=== PATIENT | female | born 1945 | race Caucasian/White ===

== ENCOUNTER 2017-12-25 08:12 | Inpatient (IN) | payer MEDICARE, OTHER ==
[~2017-12-25] VITALS: Ht 172.7 cm; Wt 57.0 kg
[~2017-12-25 08:12] MED LIST: ACET-812 PO; ACET500C26 PO; ASPI-1265 PO; ATRNS; CALC-212 PO; CHOL10002 PO; COGNITEX PO; CURCUMIN PO; DONE10TA44 PO; FISH12002 PO; GABA300C PO; IBUP-2417 PO; MAGN200T PO; MELA5TAB12 PO; MEMA10TA PO; METH10005 PO; MULT-933 PO; OXYB5TAB11 PO; THYR30TA2 PO; TRAZ-218 PO; VITA1TAB37 PO; VITA400C65 PO
[2017-12-25 08:37] LABS: BASOPHILS % (AUTO) 0.2 % (0-1); EOSINOPHILS % (AUTO) 0.3 % (0-6); HEMATOCRIT 35.7 % (35.0-45.0); HEMOGLOBIN 12.1 g/dl (12.0-16.0); LYMPHOCYTES # (AUTO) 0.7 X10'3 (1.1-4.8); LYMPHOCYTES % (AUTO) 8.8 % (21-51); MEAN CORPUSCULAR HEMOGLOBIN 32.3 PG (27.0-31.0); MEAN CORPUSCULAR HGB CONC 33.7 % (33.0-36.5); MEAN CORPUSCULAR VOLUME 95.7 FL (78-98); MEAN PLATELET VOLUME 7.7 FL (7.4-10.4); MONOCYTES # (AUTO) 0.3 X10'3 (0-0.9); MONOCYTES % (AUTO) 3.2 % (2-12); NEUTROPHILS # (AUTO) 7.3 X10'3 (1.8-7.7); NEUTROPHILS % (AUTO) 87.5 % (42-75); PLATELET COUNT 278 X10'3 (140-440); RED BLOOD COUNT 3.73 X10'6 (4.20-5.60); RED CELL DISTRIBUTION WIDTH 13.3 % (11.5-14.5); WHITE BLOOD COUNT 8.4 X10'3 (4.5-11.0)
[2017-12-25 08:48] LABS: INR 0.9 INR; PARTIAL THROMBOPLASTIN TIME 23 SECONDS (22-32); PROTHROMBIN TIME 9.7 SECONDS (9.0-12.0)
[2017-12-25 08:52] LABS: ALANINE AMINOTRANSFERASE 22 U/L (12-78); ALBUMIN 3.4 G/DL (3.4-5.0); ALKALINE PHOSPHATASE 55 IU/L (46-116); ANION GAP 11 (8-16); ASPARTATE AMINO TRANSFERASE 22 U/L (10-37); BILIRUBIN,TOTAL 0.3 MG/DL (0.1-1.0); BLOOD UREA NITROGEN 16 MG/DL (7-18); BUN/CREATININE RATIO 15.7 (6.6-38.0); CALCIUM 8.8 MG/DL (8.5-10.1); CHLORIDE 100 MMOL/L (99-107); CREATININE 1.02 MG/DL (0.40-0.90); GLUCOSE 117 MG/DL (70-104); POTASSIUM 3.6 MMOL/L (3.5-5.1); SODIUM 137 MMOL/L (135-145); TOTAL PROTEIN 6.9 G/DL (6.4-8.2); eGFR 53 ML/MIN
[2017-12-25] MEDS ORDERED: normal saline 1000ML IV soln IVB ONE (09:35)
[2017-12-25 09:48] LABS: CLARITY,URINE CLEAR (Clear); COLOR,URINE YELLOW (Yellow); GLUCOSE, URINE NEGATIVE (Neg); KETONES,URINE NEGATIVE (Neg); LEUKOCYTE ESTERASE ,URINE NEGATIVE (Neg); NITRITES, URINE NEGATIVE (Neg); OCCULT BLOOD,URINE NEGATIVE (Neg); PROTEIN,URINE NEGATIVE (Neg); UROBILINOGEN,URINE 0.2 E.U/dL (0.2-1.0)
[2017-12-25 09:55] LABS: UA COLLECTION TYPE STRAIGHT CATH
[2017-12-25] MEDS ORDERED: iohexol 350MG/ML 100ml bottle IV ONE (09:55)
[2017-12-25] MEDS ORDERED: acetaminophen 325mg tablet PO PRN ×2 (12:25)
[2017-12-25] MEDS ORDERED: magnesium hydroxide 30ml (MOM) UD suspension PO PRN (12:25)
[2017-12-25] MEDS: normal saline 1000ml 1,000 ML IV SCH (14:12)
[2017-12-25 15:09] LABS: HEMOGLOBIN A1C 4.7 % (4.5-6.2)
[2017-12-25 15:38] VITALS: BP 147/55
[2017-12-25 15:41] VITALS: BP 147/55
[2017-12-25] MEDS ORDERED: ibuprofen 200mg tablet PO PRN (17:30)
[2017-12-25 18:04] VITALS: BP 172/64
[2017-12-25 19:30] VITALS: BP 172/64
[2017-12-25] MEDS ORDERED: ACETYLCARNITINE 500 MG PO SCH (20:00)
[2017-12-25] MEDS: memantine 5mg tablet PO SCH (20:05)
[2017-12-25] MEDS: traZODone 50mg tablet PO SCH (20:06)
[2017-12-25] MEDS: donepezil 5mg tablet PO SCH (20:41)
[2017-12-25] MEDS: oxybutynin 5mg tablet PO SCH (20:41)
[2017-12-25] MEDS: Melatonin 3mg tablet PO SCH (20:44)
[2017-12-25] MEDS: gabapentin 300mg capsule PO SCH (20:44)
[2017-12-25] MEDS: vitamin E 400 unit capsule PO SCH (20:47)
[2017-12-25] MEDS: multivitamins, therapeutics tablet PO SCH (20:47)
[2017-12-25] MEDS ORDERED: non-formulary drug (Acetaminophen (Tylenol Extra Strength) 2 TABLET) PO SCH (21:00)
[2017-12-25] MEDS ORDERED: aspirin 81mg tab.chew PO SCH (21:00)
[2017-12-25] MEDS ORDERED: METHYLSULFONYLMETHANE PO SCH (21:00)
[2017-12-25 22:00] VITALS: BP 133/56
[2017-12-25 23:30] VITALS: BP 133/56
[2017-12-26] VITALS (7 sets, daily range): BP systolic 116–172; BP diastolic 49–93
[2017-12-26] MEDS: normal saline 1000ml 1,000 ML IV SCH ×2 (02:17→17:00)
[2017-12-26 06:37] LABS: CHOL/HDL RATIO 2.9 (0.00-4.99); CHOLESTEROL 155 MG/DL (0-200); HDL CHOLESTEROL 54 MG/DL (35-60); LDL CHOLESTEROL 92 MG/DL (50-100); TRIGLYCERIDES 38 MG/DL (20-135)
[2017-12-26] MEDS ORDERED: [UNRECOGNIZED DRUG - OTHER] PO SCH (08:00)
[2017-12-26] MEDS ORDERED: non-formulary drug (Calcium Cmb 2/Mag Cmb 12/Vitd3 (Calcium 500 Mg Tablet) 1 TAB) PO SCH (08:00)
[2017-12-26] MEDS ORDERED: non-formulary drug (Fish Oil/Borage/Flax/Om3,6,9#1 (Omega 3-6-9 1,200 mg Softgel) 1 CAP) PO SCH (08:00)
[2017-12-26] MEDS: gabapentin 300mg capsule PO SCH ×3 (11:12→19:46)
[2017-12-26] MEDS: aspirin 325mg tablet PO SCH (11:12)
[2017-12-26] MEDS: memantine 5mg tablet PO SCH ×2 (11:12→19:45)
[2017-12-26] MEDS: thyroid, pork 30mg tablet PO SCH (11:13)
[2017-12-26] MEDS: clopidogrel 75mg tablet PO SCH (11:13)
[2017-12-26] MEDS: vitamin B comp w/Vit. C tab 1 TAB TABLET PO SCH (11:13)
[2017-12-26] MEDS: vitamin D (cholecalciferol) 1,000 unit tablet PO SCH (11:14)
[2017-12-26] MEDS: enoxaparin 40mg/0.4ml syringe SQ SCH (11:15)
[2017-12-26] MEDS: Melatonin 3mg tablet PO SCH (19:45)
[2017-12-26] MEDS: vitamin E 400 unit capsule PO SCH (19:45)
[2017-12-26] MEDS: multivitamins, therapeutics tablet PO SCH (19:45)
[2017-12-26] MEDS: donepezil 5mg tablet PO SCH (19:45)
[2017-12-26] MEDS: oxybutynin 5mg tablet PO SCH (19:46)
[2017-12-26] MEDS: traZODone 50mg tablet PO SCH (19:52)
[2017-12-27 02:00] VITALS: BP 160/59
[2017-12-27] MEDS: normal saline 1000ml 1,000 ML IV SCH (02:21)
[2017-12-27 05:00] VITALS: BP 157/54
[2017-12-27] MEDS: aspirin 325mg tablet PO SCH (07:39)
[2017-12-27] MEDS: thyroid, pork 30mg tablet PO SCH (07:40)
[2017-12-27] MEDS: clopidogrel 75mg tablet PO SCH (07:40)
[2017-12-27] MEDS: memantine 5mg tablet PO SCH ×2 (07:40→20:20)
[2017-12-27] MEDS: gabapentin 300mg capsule PO SCH ×3 (07:40→20:19)
[2017-12-27] MEDS: vitamin D (cholecalciferol) 1,000 unit tablet PO SCH (07:40)
[2017-12-27] MEDS: vitamin B comp w/Vit. C tab 1 TAB TABLET PO SCH (07:40)
[2017-12-27] MEDS: enoxaparin 40mg/0.4ml syringe SQ SCH (07:41)
[2017-12-27 18:00] VITALS: BP 151/56
[2017-12-27] MEDS: traZODone 50mg tablet PO SCH (19:50)
[2017-12-27] MEDS: multivitamins, therapeutics tablet PO SCH (20:19)
[2017-12-27] MEDS: vitamin E 400 unit capsule PO SCH (20:19)
[2017-12-27] MEDS: oxybutynin 5mg tablet PO SCH (20:19)
[2017-12-27] MEDS: donepezil 5mg tablet PO SCH (20:20)
[2017-12-27] MEDS: Melatonin 3mg tablet PO SCH (20:20)
[2017-12-27] MEDS: Potassium Cl inj 10 MEQ in normal saline 1000ml 1,000 ML IV SCH (21:00)
[2017-12-27 22:00] VITALS: BP 144/57
[2017-12-28] VITALS (7 sets, daily range): BP systolic 134–160; BP diastolic 58–90
[2017-12-28 05:44] LABS: ALBUMIN 2.7 G/DL (3.4-5.0); ANION GAP 10 (8-16); BLOOD UREA NITROGEN 9 MG/DL (7-18); BUN/CREATININE RATIO 14.8 (6.6-38.0); CALCIUM 8.5 MG/DL (8.5-10.1); CHLORIDE 102 MMOL/L (99-107); CREATININE 0.61 MG/DL (0.40-0.90); GLUCOSE 91 MG/DL (70-104); SODIUM 138 MMOL/L (135-145); TOTAL CARBON DIOXIDE 26.5 MMOL/L (24-32); eGFR > 90 ML/MIN
[2017-12-28] MEDS ORDERED: OXYB5TAB11 PO (06:25)
[2017-12-28] MEDS ORDERED: potassium Cl 20 mEq SR tablet PO PRN (07:15)
[2017-12-28] MEDS ORDERED: magnesium Cl slow-release 64mg tablet PO PRN (07:15)
[2017-12-28] MEDS ORDERED: magnesium 4gm in 100ml NS 100 ML IV PRN (07:15)
[2017-12-28] MEDS ORDERED: magnesium 1gm/100ml D5W IVPB 100 ML IV PRN (07:15)
[2017-12-28] MEDS ORDERED: potassium Cl 40MEQ/NS 500ml 500 ML IV PRN ×2 (07:15)
[2017-12-28] MEDS: aspirin 325mg tablet PO SCH (07:30)
[2017-12-28] MEDS: vitamin B comp w/Vit. C tab 1 TAB TABLET PO SCH (07:31)
[2017-12-28] MEDS: memantine 5mg tablet PO SCH ×2 (07:31→20:22)
[2017-12-28] MEDS: thyroid, pork 30mg tablet PO SCH (07:31)
[2017-12-28] MEDS: clopidogrel 75mg tablet PO SCH (07:31)
[2017-12-28] MEDS: gabapentin 300mg capsule PO SCH ×3 (07:31→20:23)
[2017-12-28] MEDS: potassium Cl 20 mEq SR tablet PO PRN ×3 (07:32→16:24)
[2017-12-28] MEDS: vitamin D (cholecalciferol) 1,000 unit tablet PO SCH (07:32)
[2017-12-28] MEDS: Potassium Cl inj 10 MEQ in normal saline 1000ml 1,000 ML IV SCH (10:59)
[2017-12-28] MEDS: lactose-reduced food (Ensure Enlive) - 237ml bottle PO SCH (18:00)
[2017-12-28] MEDS: Melatonin 3mg tablet PO SCH (20:23)
[2017-12-28] MEDS: oxybutynin 5mg tablet PO SCH (20:23)
[2017-12-28] MEDS: multivitamins, therapeutics tablet PO SCH (20:23)
[2017-12-28] MEDS: donepezil 5mg tablet PO SCH (20:23)
[2017-12-28] MEDS: vitamin E 400 unit capsule PO SCH (20:24)
[2017-12-29] MEDS: Potassium Cl inj 10 MEQ in normal saline 1000ml 1,000 ML IV SCH (02:27)
[2017-12-29 05:48] LABS: BASOPHILS % (AUTO) 0.6 % (0-1); EOSINOPHILS # (AUTO) 0.1 X10'3 (0-0.9); EOSINOPHILS % (AUTO) 1.6 % (0-6); HEMATOCRIT 35.2 % (35.0-45.0); LYMPHOCYTES # (AUTO) 1.5 X10'3 (1.1-4.8); LYMPHOCYTES % (AUTO) 21.3 % (21-51); MEAN CORPUSCULAR HEMOGLOBIN 31.9 PG (27.0-31.0); MEAN CORPUSCULAR VOLUME 93.8 FL (78-98); MEAN PLATELET VOLUME 7.4 FL (7.4-10.4); MONOCYTES # (AUTO) 0.5 X10'3 (0-0.9); MONOCYTES % (AUTO) 6.4 % (2-12); NEUTROPHILS # (AUTO) 5.1 X10'3 (1.8-7.7); NEUTROPHILS % (AUTO) 70.1 % (42-75); PLATELET COUNT 316 X10'3 (140-440); RED BLOOD COUNT 3.76 X10'6 (4.20-5.60); RED CELL DISTRIBUTION WIDTH 13.2 % (11.5-14.5); WHITE BLOOD COUNT 7.3 X10'3 (4.5-11.0)
[2017-12-29 05:49] VITALS: BP_SYST 118; BP_SYST 148; BP_SYST 152; BP_DIAS 54; BP_DIAS 63; BP_DIAS 88
[2017-12-29 05:59] LABS: ALBUMIN 2.9 G/DL (3.4-5.0); ANION GAP 9 (8-16); BLOOD UREA NITROGEN 11 MG/DL (7-18); CALCIUM 8.4 MG/DL (8.5-10.1); CHLORIDE 103 MMOL/L (99-107); CREATININE 0.58 MG/DL (0.40-0.90); GLUCOSE 103 MG/DL (70-104); POTASSIUM 4.1 MMOL/L (3.5-5.1); SODIUM 137 MMOL/L (135-145); TOTAL CARBON DIOXIDE 25.2 MMOL/L (24-32); eGFR > 90 ML/MIN
[2017-12-29 06:00] VITALS: BP 152/63
[2017-12-29 06:29] LABS: PARTIAL THROMBOPLASTIN TIME 25 SECONDS (22-32); PROTHROMBIN TIME 10.3 SECONDS (9.0-12.0)
[2017-12-29] MEDS: gabapentin 300mg capsule PO SCH ×2 (07:31→12:14)
[2017-12-29] MEDS: vitamin D (cholecalciferol) 1,000 unit tablet PO SCH (07:31)
[2017-12-29] MEDS: memantine 5mg tablet PO SCH (07:31)
[2017-12-29] MEDS: vitamin B comp w/Vit. C tab 1 TAB TABLET PO SCH (07:31)
[2017-12-29] MEDS: thyroid, pork 30mg tablet PO SCH (07:31)
[2017-12-29] MEDS: lactose-reduced food (Ensure Enlive) - 237ml bottle PO SCH ×3 (08:00→13:00)
[2017-12-29] MEDS ORDERED: HYDROcodone/acetaminophen 5mg/325mg tablet PO PRN (12:05)
== END 2017-12-29 15:45 | DRG 56 ==
LOC: ER 08:13 → ED HOLD 12:24 → EDBEDREQ 14:17 → ORTHO 4S 15:00
PROVIDERS: ADMIT Internal Medicine; ATTEND Internal Medicine
PROC: B3251ZZ Computerized Tomography (CT Scan) of Bilateral Common Carotid Arteries using Low Osmolar Contrast (ICD-10-PCS; principal; 2017-12-25)
PROC: B32G1ZZ Computerized Tomography (CT Scan) of Bilateral Vertebral Arteries using Low Osmolar Contrast (ICD-10-PCS; 2017-12-25)
PROC: B3281ZZ Computerized Tomography (CT Scan) of Bilateral Internal Carotid Arteries using Low Osmolar Contrast (ICD-10-PCS; 2017-12-25)
PROC: 4A10X4Z Monitoring of Central Nervous Electrical Activity, External Approach (ICD-10-PCS; 2017-12-26)
DX: G91.2 (Idiopathic) normal pressure hydrocephalus (principal); G93.40 Encephalopathy, unspecified; E44.0 Moderate protein-calorie malnutrition; Z68.1 Body mass index [BMI] 19.9 or less, adult; F02.81 Dementia in other diseases classified elsewhere, unspecified severity, with behavioral disturbance; G83.21 Monoplegia of upper limb affecting right dominant side; R56.9 Unspecified convulsions; E03.9 Hypothyroidism, unspecified; G30.9 Alzheimer's disease, unspecified; S46.011A Strain of muscle(s) and tendon(s) of the rotator cuff of right shoulder, initial encounter; E87.6 Hypokalemia; G62.9 Polyneuropathy, unspecified; W06.XXXA Fall from bed, initial encounter; M50.30 Other cervical disc degeneration, unspecified cervical region; Z96.652 Presence of left artificial knee joint; Z79.899 Other long term (current) drug therapy; Z79.82 Long term (current) use of aspirin; Z87.440 Personal history of urinary (tract) infections; Z80.1 Family history of malignant neoplasm of trachea, bronchus and lung; Y93.89 Activity, other specified; Y92.89 Other specified places as the place of occurrence of the external cause; Y99.8 Other external cause status
CPT/HCPCS: 36415; 70450; 70496; 70498; 70544; 70551; 71045; 72141; 73030; 73221; 73721; 80048; 80053; 80061; 81003; 83036; 84132; 84443; 84484; 85025; 85610; 85651; 85730; 87070; 92616; 93005; 93306; 95816; 97110; 97116; 97162; 97530; 99285; A4353; A4565; J1650; J3480; J7030; Q9967

== ENCOUNTER 2018-02-10 03:53 | Emergency (ER) | payer MEDICARE, OTHER ==
[~2018-02-10] VITALS: Ht 172.7 cm; Wt 57.0 kg
[~2018-02-10 03:53] MED LIST changes: -TRAZ-218 PO
[2018-02-10] MEDS ORDERED: nitroGLYCERIN 0.4mg SUBLingual tab SL PRN (04:05)
[2018-02-10] MEDS ORDERED: aspirin 81mg tab.chew PO ONE (04:05)
[2018-02-10] MEDS ORDERED: pantoprazole 40 MG vial IV ONE (04:35)
[2018-02-10] MEDS ORDERED: famotidine/PF 10 mg/ml inj IV ONE (04:35)
[2018-02-10 04:48] LABS: BASOPHILS % (AUTO) 0.6 % (0-1); EOSINOPHILS # (AUTO) 0.1 X10'3 (0-0.9); EOSINOPHILS % (AUTO) 1.4 % (0-6); HEMATOCRIT 36.9 % (35.0-45.0); HEMOGLOBIN 12.3 g/dl (12.0-16.0); LYMPHOCYTES # (AUTO) 1.6 X10'3 (1.1-4.8); LYMPHOCYTES % (AUTO) 36.9 % (21-51); MEAN CORPUSCULAR HEMOGLOBIN 31.2 PG (27.0-31.0); MEAN CORPUSCULAR HGB CONC 33.3 % (33.0-36.5); MEAN CORPUSCULAR VOLUME 93.6 FL (78-98); MEAN PLATELET VOLUME 7.3 FL (7.4-10.4); MONOCYTES # (AUTO) 0.3 X10'3 (0-0.9); MONOCYTES % (AUTO) 7.2 % (2-12); NEUTROPHILS # (AUTO) 2.3 X10'3 (1.8-7.7); NEUTROPHILS % (AUTO) 53.9 % (42-75); PLATELET COUNT 306 X10'3 (140-440); RED BLOOD COUNT 3.94 X10'6 (4.20-5.60); WHITE BLOOD COUNT 4.3 X10'3 (4.5-11.0)
[2018-02-10 04:57] LABS: ALANINE AMINOTRANSFERASE 22 U/L (12-78); ALBUMIN 3.3 G/DL (3.4-5.0); ALBUMIN/GLOBULIN RATIO 1.1 (1.1-1.5); ALKALINE PHOSPHATASE 42 IU/L (46-116); ANION GAP 5 (8-16); ASPARTATE AMINO TRANSFERASE 16 U/L (10-37); BILIRUBIN,TOTAL 0.3 MG/DL (0.1-1.0); BLOOD UREA NITROGEN 11 MG/DL (7-18); BUN/CREATININE RATIO 15.9 (6.6-38.0); CALCIUM 9.1 MG/DL (8.5-10.1); CHLORIDE 100 MMOL/L (99-107); CREATININE 0.69 MG/DL (0.40-0.90); GLUCOSE 91 MG/DL (70-104); POTASSIUM 3.8 MMOL/L (3.5-5.1); SODIUM 137 MMOL/L (135-145); TOTAL CARBON DIOXIDE 31.9 MMOL/L (24-32); TOTAL PROTEIN 6.4 G/DL (6.4-8.2); eGFR 83 ML/MIN
[2018-02-10 05:05] LABS: MAGNESIUM 1.8 MG/DL (1.5-2.4)
[2018-02-10] MEDS ORDERED: sucralfate 1gm/10ml UD suspension PO SCH (06:10)
[2018-02-10] MEDS ORDERED: mag hydrox/Alum hydrox/simeth 30ml oral suspension PO ONE (06:10)
[2018-02-10] MEDS ORDERED: sucralfate 1gm/10ml UD suspension PO ONE (06:10)
[2018-02-10] MEDS ORDERED: LIDOcaine Viscous 15ml cup MM PRN (06:10)
[2018-02-10 07:42] LABS: CLARITY,URINE CLEAR (Clear); COLOR,URINE YELLOW (Yellow); GLUCOSE, URINE NEGATIVE (Neg); KETONES,URINE NEGATIVE (Neg); OCCULT BLOOD,URINE NEGATIVE (Neg); PH,URINE 6.5 (4.8-8.0); PROTEIN,URINE NEGATIVE (Neg); UROBILINOGEN,URINE 0.2 E.U/dL (0.2-1.0)
[2018-02-10 07:55] LABS: NITRITES, URINE NEGATIVE (Neg); UA COLLECTION TYPE STRAIGHT CATH
[2018-02-10 07:57] LABS: LEUKOCYTE ESTERASE ,URINE TRACE (Neg)
[2018-02-10 07:58] LABS: BACTERIA,URINE NONE SEEN /HPF (Neg); MUCUS STRANDS NONE SEEN /LPF (Neg); RBC,URINE NONE SEEN /HPF (0-2); SQUAMOUS EPITHELIAL CELL,UR NONE SEEN /LPF (FEW); WBC,URINE 0-4 /HPF (0-4)
[2018-02-10 08:17] VITALS: BP 158/76
== END 2018-02-10 08:38 | disposition home or self-care (01) ==
LOC: ER 03:54
DX: R07.89 Other chest pain (principal); Z98.890 Other specified postprocedural states; Z79.899 Other long term (current) drug therapy; Z79.82 Long term (current) use of aspirin
CPT/HCPCS: 36415; 71045; 80053; 81001; 83735; 83880; 84484; 85025; 87077; 87088; 87186; 93005; 96374; 96375; 99285; C9113; J3490; P9612